=== PATIENT | female | born 1990 | race Caucasian/White ===

== ENCOUNTER 2022-07-01 23:39 | Emergency (ER) | payer SELFPAY ==
[~2022-07-01] VITALS: Ht 160 cm; Wt 116.1 kg
[~2022-07-01 23:39] MED LIST: ALLO300T2 PO
--- NOTE | 2022-07-02 00:01 | NUR ---
Dr Marte at bedside, MSE in progress
--- NOTE | 2022-07-02 00:30 | NUR ---
Patient discharged to home in stable condition. Written and verbal after care instructions given. Patient verbalizes understanding of instructions. Stressed follow up or return to ER for worsening s/s. Patient is a/ox4, NAD noted. Patient is able to walk with steady gait
[2022-07-02 00:31] VITALS: BP 128/80
== END 2022-07-02 00:32 | disposition home or self-care (01) ==
LOC: ER 07-02 00:06
DX: M70.822 Other soft tissue disorders related to use, overuse and pressure, left upper arm (principal); Y93.89 Activity, other specified; M62.830 Muscle spasm of back; M25.562 Pain in left knee; R03.0 Elevated blood-pressure reading, without diagnosis of hypertension
CPT/HCPCS: A4663